=== PATIENT | male | born 1945 | race Caucasian/White ===

== ENCOUNTER 2018-01-24 08:30 | Emergency (ER) | payer SELFPAY ==
[~2018-01-24] VITALS: Ht 127 cm; Wt 50.0 kg
[2018-01-24 14:47] LABS: CLARITY URINE CLEAR (CLEAR); COLOR URINE DARK YELLOW (YELLOW); KETONES URINE TRACE (NEGATIVE); LEUKOCYTE ESTERASE URINE TRACE (NEGATIVE); NITRITE URINE NEGATIVE (NEGATIVE); OCCULT BLOOD URINE NEGATIVE (NEGATIVE); PROTEIN URINE NEGATIVE (NEGATIVE); SPECIFIC GRAVITY URINE 1.016 (1.005-1.030)
[2018-01-24 17:03] VITALS: BP 168/74
== END 2018-01-24 18:39 | disposition home or self-care (01) ==
LOC: ER 09:09
DX: M16.0 Bilateral primary osteoarthritis of hip (principal)
CPT/HCPCS: 72170; 72192; 81003; 99285; J7040; Z7610

== ENCOUNTER 2019-03-14 09:33 | Emergency (ER) | payer MEDICAID ==
[~2019-03-14] VITALS: Ht 149.9 cm; Wt 61.0 kg
[2019-03-14] MEDS ORDERED: ACETAMINOPHEN 500MG TABLET PO ONE (11:30)
[2019-03-14] MEDS ORDERED: ONDANSETRON HCL 4MG/2ML INJ IV ONE (15:00)
[2019-03-14] MEDS ORDERED: KETAMINE HCL 50 MG/ML 10ML IV ONE (15:00)
[2019-03-14] MEDS ORDERED: PROPOFOL 200MG/20ML VIAL IV ONE (15:00)
[2019-03-14 16:45] VITALS: BP 170/78
== END 2019-03-14 16:45 | disposition home or self-care (01) ==
LOC: ER 09:33
DX: S42.292A Other displaced fracture of upper end of left humerus, initial encounter for closed fracture (principal); S43.014A Anterior dislocation of right humerus, initial encounter; X58.XXXA Exposure to other specified factors, initial encounter; Y93.89 Activity, other specified; Y92.89 Other specified places as the place of occurrence of the external cause; Y99.8 Other external cause status
CPT/HCPCS: 23650; 73030; 96374; 99152; 99285; J2405; J2704; J3490; L3670

== ENCOUNTER 2020-09-30 09:07 | Emergency (ER) | payer MEDICARE, MEDICAID ==
[~2020-09-30] VITALS: Ht 137.2 cm; Wt 52.0 kg
[2020-09-30] MEDS ORDERED: TRIAMCINOLONE ACETONIDE 0.1 % OINT 15GM TOP SCH (10:30)
[2020-09-30 11:19] LABS: EOSINOPHILS % 2.3 % (0.0-5.0); HEMATOCRIT. 41.9 % (42.0-52.0); HEMOGLOBIN. 14.5 g/dL (14.0-18.0); LYMPHOCYTES % 18.6 % (20.0-50.0); MEAN CORPUSCULAR HEMOGLOBIN 35.7 pg (28.0-32.0); MEAN CORPUSCULAR VOLUME 103.4 fL (80.0-94.0); MEAN PLATELET VOLUME 7.6 fl (7.4-10.4); MONOCYTES % 13.3 % (2.0-8.0); NEUTROPHILS % 64.8 % (40.0-76.0); PLATELET 303 x1000/uL (130-400); RED BLOOD CELL COUNT 4.05 mill/uL (4.7-6.1); RED CELL DISTRIBUTION WIDTH 13.2 % (11.6-14.6)
[2020-09-30 11:27] LABS: CHLORIDE 103 mEq/L (98-107)
[2020-09-30 11:28] LABS: PROTHROMBIN TIME 10.4 sec (9.6-11.0)
[2020-09-30 11:40] VITALS: BP 142/68
[2020-09-30] MEDS ORDERED: TC1U15 TP (11:51)
== END 2020-09-30 12:12 | disposition home or self-care (01) ==
LOC: ER 09:27
DX: L30.9 Dermatitis, unspecified (principal); F03.90 Unspecified dementia, unspecified severity, without behavioral disturbance, psychotic disturbance, mood disturbance, and anxiety; Z98.890 Other specified postprocedural states
CPT/HCPCS: 36415; 80053; 85025; 99283

== ENCOUNTER 2022-01-29 09:09 | Emergency (ER) | payer MEDICARE, MEDICAID ==
[~2022-01-29] VITALS: Ht 149.9 cm; Wt 52.0 kg
[~2022-01-29 09:09] MED LIST: TC1U15 TP
[2022-01-29 09:20] VITALS: BP 161/78
== END 2022-01-29 13:52 | disposition left against medical advice (07) ==
LOC: ER 09:09
DX: Z53.21 Procedure and treatment not carried out due to patient leaving prior to being seen by health care provider (principal)

== ENCOUNTER 2022-06-04 09:35 | Emergency (ER) | payer MEDICARE, MEDICAID ==
[~2022-06-04] VITALS: Ht 147.3 cm; Wt 50.0 kg
[2022-06-04 10:09] VITALS: BP 180/92
== END 2022-06-04 15:59 | disposition left against medical advice (07) ==
LOC: ER 09:35
DX: S02.402A Zygomatic fracture, unspecified side, initial encounter for closed fracture (principal); W18.30XA Fall on same level, unspecified, initial encounter; Y93.89 Activity, other specified; Y92.89 Other specified places as the place of occurrence of the external cause; Y99.8 Other external cause status
CPT/HCPCS: 70486; 73100; 73130; 99284

== ENCOUNTER 2022-09-27 10:06 | Emergency (ER) | payer MEDICARE, MEDICAID ==
[~2022-09-27] VITALS: Ht 152.4 cm; Wt 53.0 kg
[~2022-09-27 10:06] MED LIST changes: +TOPUD PO
[2022-09-27 10:16] VITALS: BP 150/76
== END 2022-09-27 13:46 | disposition left against medical advice (07) ==
LOC: ER 10:06
DX: Z76.0 Encounter for issue of repeat prescription (principal); Z53.21 Procedure and treatment not carried out due to patient leaving prior to being seen by health care provider
CPT/HCPCS: 99281

== ENCOUNTER 2023-03-01 08:21 | Emergency (ER) | payer MEDICARE, OTHER, MEDICAID ==
[~2023-03-01] VITALS: Ht 152.4 cm; Wt 45.0 kg
[2023-03-01 08:32] VITALS: BP 114/51; PULSE 88; RESP 20; O2SAT 97
[2023-03-01 09:00] VITALS: TEMP 98.1
[2023-03-01] MEDS ORDERED: ACETAMINOPHEN 325MG TABLET PO ONE (09:00)
[2023-03-01 10:38] LABS: BASOPHILS % 0.8 % (0.0-2.0); DIFFERENTIAL COMMENT 0; EOSINOPHILS % 0.4 % (0.0-5.0); HEMATOCRIT. 41.4 % (42.0-52.0); LYMPHOCYTES % 12.4 % (20.0-50.0); MEAN CORPUSCULAR HEMOGLOBIN 34.9 pg (28.0-32.0); MEAN CORPUSCULAR HGB CONC 33.9 g/dL (31.0-37.0); MEAN CORPUSCULAR VOLUME 102.9 fL (80.0-94.0); MEAN PLATELET VOLUME 7.3 fl (7.4-10.4); MONOCYTES % 14.1 % (2.0-8.0); NEUTROPHILS % 72.3 % (40.0-76.0); PLATELET 293 x1000/uL (130-400); RED BLOOD CELL COUNT 4.02 mill/uL (4.7-6.1); RED CELL DISTRIBUTION WIDTH 13.7 % (11.6-14.6); WHITE BLOOD COUNT 8.5 x1000/uL (4.5-11.0)
[2023-03-01 10:52] LABS: PARTIAL THROMBOPLASTIN TIME 30.6 sec (23.4-31.0); PROTHROMBIN TIME 10.4 sec (9.6-11.0)
[2023-03-01 10:54] LABS: CHLORIDE 98 mEq/L (98-107); INDEX HEMOLYSI 1 (1-3); INDEX ICTERIC 2 (1-4); INDEX LIPEMIC 1 (1-3); POTASSIUM 4.3 mEq/L (3.5-5.1); SODIUM 130 mEq/L (136-145)
[2023-03-01 10:56] LABS: CALCIUM 9.2 mg/dL (8.5-10.1)
[2023-03-01 11:07] LABS: ALANINE AMINOTRANSFERASE 30 IU/L (13-61); ALBUMIN 3.5 g/dL (3.4-5.0); ASPARTATE AMINOTRANSFERASE 37 IU/L (15-37); BILIRUBIN TOTAL 2.3 mg/dL (0.1-1.0); CARBON DIOXIDE 26 mEq/L (21-32); CREATININE 0.6 mg/dL (0.6-1.3); GLUCOSE 104 mg/dL (70-105); NT PRO B-TYPE NATRIURETIC PEP 101 pg/mL (5-125); PROTEIN TOTAL 8.3 g/dL (6.0-8.3); TROPONIN I HIGH SENSITIVITY 5 ng/L (<78); UREA NITROGEN BLOOD 9 mg/dL (7-21)
== END 2023-03-01 14:08 | disposition left against medical advice (07) ==
LOC: ER 08:21
DX: M25.552 Pain in left hip (principal); I10 Essential (primary) hypertension; Z20.822 Contact with and (suspected) exposure to COVID-19; W18.30XA Fall on same level, unspecified, initial encounter; Y93.89 Activity, other specified; Y92.89 Other specified places as the place of occurrence of the external cause; Y99.8 Other external cause status
CPT/HCPCS: 99284; 71045; 87426; 80053; 83880; 85025; 85610; 85730; 84484; 36415; 73502; 73552; 73590; C9803

== ENCOUNTER 2023-03-05 10:35 | Emergency (ER) | payer MEDICARE, OTHER ==
[~2023-03-05] VITALS: Ht 152.4 cm; Wt 54.0 kg
[2023-03-05 10:46] VITALS: BP 151/67; TEMP 98.7; O2SAT 100
[2023-03-05 11:02] VITALS: PULSE 72; RESP 18
[2023-03-05 12:27] LABS: HEMATOCRIT. 42.7 % (42.0-52.0); HEMOGLOBIN. 14.6 g/dL (14.0-18.0); MEAN CORPUSCULAR HEMOGLOBIN 35.4 pg (28.0-32.0); MEAN CORPUSCULAR HGB CONC 34.1 g/dL (31.0-37.0); MEAN CORPUSCULAR VOLUME 103.8 fL (80.0-94.0); MEAN PLATELET VOLUME 7.4 fl (7.4-10.4); PLATELET 330 x1000/uL (130-400); RED BLOOD CELL COUNT 4.11 mill/uL (4.7-6.1); RED CELL DISTRIBUTION WIDTH 13.8 % (11.6-14.6); WHITE BLOOD COUNT 7.6 x1000/uL (4.5-11.0)
[2023-03-05 12:31] LABS: DIFFERENTIAL COMMENT 1
[2023-03-05 12:52] LABS: CHLORIDE 99 mEq/L (98-107); INDEX HEMOLYSI 1 (1-3); INDEX ICTERIC 1 (1-4); INDEX LIPEMIC 1 (1-3); POTASSIUM 4.3 mEq/L (3.5-5.1); SODIUM 132 mEq/L (136-145)
[2023-03-05 13:02] LABS: ALANINE AMINOTRANSFERASE 38 IU/L (13-61); ALBUMIN 3.5 g/dL (3.4-5.0); ASPARTATE AMINOTRANSFERASE 44 IU/L (15-37); BILIRUBIN TOTAL 0.9 mg/dL (0.1-1.0); CALCIUM 9.1 mg/dL (8.5-10.1); CARBON DIOXIDE 29 mEq/L (21-32); CREATININE 0.6 mg/dL (0.6-1.3); GLUCOSE 101 mg/dL (70-105); PROTEIN TOTAL 8.7 g/dL (6.0-8.3); UREA NITROGEN BLOOD 7 mg/dL (7-21)
[2023-03-05 13:13] LABS: PLATELET ESTIMATE NORMAL
== END 2023-03-05 16:27 | disposition left against medical advice (07) ==
LOC: ER 10:35 → CANBEDREQ 13:03 → ER 16:27
DX: M25.552 Pain in left hip (principal); M25.551 Pain in right hip; I10 Essential (primary) hypertension; W18.30XA Fall on same level, unspecified, initial encounter; Y93.89 Activity, other specified; Y92.89 Other specified places as the place of occurrence of the external cause; Y99.8 Other external cause status
CPT/HCPCS: 80053; 85025; 36415; 72192; 73700; 93005; 99285; Z7610

== ENCOUNTER 2024-09-21 16:42 | Emergency (ER) | payer MEDICARE, MEDICAID ==
[~2024-09-21] VITALS: Ht 152.4 cm; Wt 70.5 kg
[2024-09-21] MEDS ORDERED: METH4TAB95 MT (17:36)
[2024-09-21] MEDS: METHYLPREDNISOLONE SOD SUCC 125MG/2ML (ACT-O-VIAL) IV STA (17:55)
[2024-09-21] MEDS: IPRATROPIUM BROMIDE (0.02%) 0.5MG/2.5ML NEB HHN STA (18:12)
[2024-09-21 18:15] VITALS: PULSE 84; RESP 20; O2SAT 97
[2024-09-21] MEDS: ALBUTEROL (0.083%) 2.5MG/3ML NEB HHN SCH (18:15)
[2024-09-21 18:53] VITALS: BP 118/70; PULSE 94; RESP 20; TEMP 36.8; O2SAT 97
== END 2024-09-21 18:53 | disposition home or self-care (01) ==
LOC: ER 16:42 → CANBEDREQ 18:29 → ER 18:53
DX: J40 Bronchitis, not specified as acute or chronic (principal); I10 Essential (primary) hypertension; J44.9 Chronic obstructive pulmonary disease, unspecified
CPT/HCPCS: 99283; 71045; 94640; 93005; J2919; 94070; 94664